=== PATIENT | female | born 1930 | race Caucasian/White ===

== ENCOUNTER 2016-08-17 13:32 | Inpatient (IN) | payer MEDICARE, BC ==
[2016-08-17] VITALS (17 sets, daily range): BP systolic 96–136; BP diastolic 42–68; BMI 29.4
[~2016-08-17] VITALS: Ht 163.8 cm; Wt 78.9 kg
--- NOTE | 2016-08-17 13:50 | NUR ---
PATIENT RECEIVED TO FLOOR FROM ADMISSIONS VIA WHEELCHAIR. PATIENT SITTING UP ON SIDE OF BED. ORIENTED TO ROOM. POSITIONED IN BED FOR COMFORT. SIDE RAILS UP X2. BED IN LOW POSITION. CALL LIGHT IN REACH. DENIES NEEDS.
[2016-08-17] MEDS ORDERED: TEGRETOL 100 M100 MG PO (13:56)
[2016-08-17] MEDS ORDERED: COSOPT EYE DROPS5 ML EACH EYE (13:57)
[2016-08-17] MEDS ORDERED: COUMADIN5 MG PO (13:57)
[2016-08-17] MEDS ORDERED: K-DUR20 MEQ PO (13:58)
[2016-08-17] MEDS ORDERED: LOPRESSOR25 MG PO (13:58)
[2016-08-17] MEDS ORDERED: HYDROCODONE-APA1 TAB PO (13:59)
[2016-08-17] MEDS ORDERED: DYAZIDE 37.5/251 CAP PO (13:59)
[2016-08-17] MEDS ORDERED: XALATAN 0.0052.5 ML EACH EYE (14:01)
--- NOTE | 2016-08-17 14:05 | NUR ---
2 FAILED ATTEMPTS TO SITE IV BY SHWETA SANCHEZ. ROMAN PRICE TO ATTEMPT TO SITE IV.
--- NOTE | 2016-08-17 14:10 | NUR ---
VASCULAR ACCESS NURSE CONSULTED FOR IV PLACEMENT
[2016-08-17] MEDS ORDERED: CYCLOBENZAPRINE10 MG PO (14:14)
--- NOTE | 2016-08-17 15:15 | NUR ---
IV ACCESS-22 GAUGE INSERTED IN LEFT HAND FOR IV ACCESS. JANICE MARTINESRN
[2016-08-17 15:24] LABS: HEMATOCRIT 29.3 % (36.0-48.0); HEMOGLOBIN 9.1 g/dL (12-16)
--- NOTE | 2016-08-17 17:45 | NUR ---
FFP INITIATED TO LEFT HAND PER ORDER. TRANSFUSING WITHOUT DIFFICULTY. VITAL SIGNS STABLE. WILL CONTINUE TO MONITOR.
--- NOTE | 2016-08-17 19:55 | NUR ---
REVIEVED PT LYING IN BED TALKING WITH FAMILY, ASSESSMENT COMPLETED, NO ACUTE DISTRESS NOTED, FALL PRECAUTIONS IN PLACE, CL IN REACH, WILL MONITOR
--- NOTE | 2016-08-17 20:45 | NUR ---
BLOOD INFUSION STARTED, NO SS OF RX NOTED, VSS PT DENIES ITCHING, FEVER, NAUSEA, CHILLS OR PAIN, INSTRUCTED PT TO INFORM STAFF IF ANY OF THESE OR OTHER UNUSUAL SYMPTOMS OCCUR, UNDERSTANDING VOICED, WILL MONITOR
--- NOTE | 2016-08-17 21:00 | NUR ---
BLOOD CONTINUES TO INFUSE WITH NO SS OF DISTRESS OR RX NOTED
--- NOTE | 2016-08-17 22:00 | NUR ---
BLOOD INFUSING, PT DENIES FEELING ANY SS OF RX, WILL CONTINUE TO MONITOR, CL IN REACH
--- NOTE | 2016-08-17 23:30 | NUR ---
BLOOD FINISHED INFUSING, PT DENIES ANY DISCOMFORT OR NEEDS, LINE FLUSHING, WILL START 2ND UNIT, CL IN REACH
[2016-08-18] VITALS (12 sets, daily range): BP systolic 100–131; BP diastolic 45–61; Ht 163.8 cm; Wt 78.9 kg
--- NOTE | 2016-08-18 | NUR ---
2ND UNIT STARTED INFUSING, NO SS OF RX NOTED, AARON WELL, DENIES NEEDS OR DISCOMFORT, CL IN REACH
--- NOTE | 2016-08-18 01:15 | NUR ---
BLOOD CONTINUES TO INFUSE, NO RX NOTED, PT RESTING WITH EYES CLOSED, RESP WITH EASE, SR'S UP, CL IN REACH
--- NOTE | 2016-08-18 02:45 | NUR ---
2ND UNIT FINISHED INFUSING, PT AARON WELL, DENIES NEEDS, CL IN REACH
[2016-08-18 05:21] LABS: HEMOGLOBIN 9.9 g/dL (12-16)
[2016-08-18 05:32] LABS: INR 3.68 (0.85-1.17)
[2016-08-18 05:41] LABS: ALBUMIN 2.4 g/dL (3.4-5.0); BILIRUBIN - TOTAL 1.52 mg/dL (0.2-1.3); CALCIUM 8.6 mg/dL (8.5-10.1); CARBON DIOXIDE 25.2 mmol/L (21.0-32.0); POTASSIUM - SERUM 4.2 mmol/L (3.5-5.1)
--- NOTE | 2016-08-18 08:00 | NUR ---
PATIENT IN RIGHT LATERAL POSITION RESTING WITH EYES CLOSED. RESPIRATIONS EVEN AND UNLABORED. SIDE RAILS UP X2. BED IN LOW POSITION. CALL LIGHT IN REACH.
--- NOTE | 2016-08-18 08:02 | HP ---
PATIENT: EUGENIO LOPES MEDICAL RECORD: [id number] ACCOUNT: [id number] LOCATION:[facility] : 32 ADMISSION DATE: 08/17/16 HISTORY AND PHYSICAL EXAMINATION DATE OF ADMISSION: 08/17/2016 CHIEF COMPLAINT: Abnormal weight loss, acute blood loss anemia, Coumadin-induced coagulopathy. HISTORY OF PRESENT ILLNESS: This is an 86-year-old white female with hypertension, history of iron deficient anemia, arthritis, obesity, chronic low back pain, atrial fibrillation on Coumadin, who was brought in by her son today complaining that she has had black tarry stools for 2 days. She is on Coumadin. She does not take Pepto-Bismol. She has never seen a gameroom technician. She has no appetite, but when she does try to eat, "it does not taste right." She has lost 36 pounds since I saw her 06/26/2016. Her hemoglobin on 06/26/2016 was 11.7. Today, her hemoglobin is 8.9. She is admitted. PAST MEDICAL AND SURGICAL HISTORY: Hypertension, anemia, arthritis, obesity, ____ spinal stenosis lumbar canal, atrial fibrillation, remote history of cerebrovascular accident, right frontal lobe. PAST SURGICAL HISTORY: Hysterectomy, cholecystectomy, left total knee arthroplasty, gastric bypass, Dr. Orozco in 2010, cataract extraction. ALLERGIES: None known. HOME MEDICATIONS: Carbamazepine 100 mg tablets 2 pills twice a day, triamterene 37.5/HCTZ 25 once a day, warfarin 5 mg on Wednesday, , Wednesday, Wednesday and 7.5 mg on Wednesday, Wednesday, Wednesday, metoprolol 50 mg once a day, lisinopril 5 mg once a day, [place] 10/325 q.4 hours p.r.n. pain, dorzolamide 22.3 mg -- timolol 6.8 mg per mL eyedrops in both eyes twice a day. SOCIAL HISTORY: She is retired. She is . She lives alone. FAMILY HISTORY: Father of heart disease. Mother with lung cancer. HABITS: Never smoked. No alcohol or drugs. REVIEW OF SYSTEMS: GENERAL: No major weight changes except for this 36-pound weight loss over the last 7 weeks. She lost about 100 pounds with her gastric bypass surgery in 2000. HEENT: No particular sinus or allergy problems. RESPIRATORY: No history of emphysema or asthma. CARDIAC: No history of coronary artery disease. She does have atrial fibrillation on Coumadin. GENITOURINARY: No history of diarrhea, constipation or reflux. She has never seen a gameroom technician. MUSCULOSKELETAL: She has arthritic aches and pains and has spinal stenosis in her back. NEUROLOGIC: She had a remote stroke years ago, but no known residual from that. PSYCHIATRIC: Denies depression or melancholia. HISTORY AND PHYSICAL [id number] EUGENIO LOPES PHYSICAL EXAMINATION: VITAL SIGNS: Today, temperature 97.9, pulse 78, respirations 20, blood pressure 136/68, O2 sat 100%. She does not appear in distress. She is a little pale. HEENT: Grossly within normal limits. NECK: Supple. No bruit. HEART: Irregularly irregular. LUNGS: Fairly clear. ABDOMEN: Soft, flat, nontender. EXTREMITIES: No edema. LABORATORY DATA: From my office, her INR was 14. CBC showed hemoglobin of 8.9, was 11.7 on 06/26/2016. ASSESSMENT: 1. Acute blood loss anemia. 2. Upper gastrointestinal bleed. 3. Coagulopathy from warfarin. 4. Abnormal weight loss. PLAN: We will transfuse, we will stabilize, consult Dr. Castillo. Other tests and procedures as warranted. TRANSINT:[id number] Voice Confirmation ID: [id number] DOCUMENT ID: [id number] SATISH HDEZ MD at 0802 CC: [id number] DICTATION DATE: 08/17/16 1509 ADULT SERVICES LIBRARIAN: 08/17/16 1832 ADM IN [id number] [place] [address]
--- NOTE | 2016-08-18 08:20 | NUR ---
PT ASSESSMENT COMPLETE AWAKE AND ALERT ORIENTED X 3 LUNGS CLEAR BIALTERALLY HAS NO ACUTE DISTRESS NTOED NO VISIBLE BLEEDING NOTED S/P TRANSFUSION YESTERDAY AND LAST NIGHT HCT AND HGB MUCH IMPROVED TODAY. CALL LIGHT IN REACH SIDE RAILS UP X 2 WILL MONITOR.
--- NOTE | 2016-08-18 10:44 | NUR ---
NO ACUTE DISTRESS NOTED VOICES ALL NEEDS TO STAFF CALL LIGHT INREACH SLEEPING WITH EVEN AND UNLABORED RESPIRATIONS AT THIS TIME.
[2016-08-18 14:34] LABS: HEMATOCRIT 31.3 % (36.0-48.0); HEMOGLOBIN 9.9 g/dL (12-16)
--- NOTE | 2016-08-18 19:05 | CN ---
PATIENT NAME:EUGENIO LOPES MEDICAL RECORD: [id number] : 34 LOCATION:[facility] ADMIT DATE: 08/17/16 ACCOUNT: [id number] CONSULTING PHYSICIAN: HERNÁN CARMICHAEL MD REFERRING PHYSICIAN: SATISH HDEZ MD DATE OF CONSULTATION: 08/17/2016 Gastroenterology Consultation REFERRING PHYSICIAN: Satish Hdez MD (Bill) HISTORY OF PRESENT ILLNESS: The patient is an 86-year-old white female with history of AFib, on chronic Coumadin therapy, as well as aspirin, and has also had a gastric bypass, who was basically admitted with a 3-month history of a reported 25-pound weight loss associated with 3-week history of what started as some nausea and vomiting followed by poor appetite, and now melena. She presented to the outpatient clinic and was reportedly found to have a hematocrit of 29 and an INR of 14. She denies any NSAID use other than her baby aspirin daily. She has no past history of any peptic ulcer disease. She has never had any type of endoscopy in the past. She denies any current abdominal pain. She claims she had been passing melena for the past 3 days. PAST MEDICAL HISTORY: As above. PAST SURGICAL HISTORY: Remarkable for the above. She has had a cholecystectomy, hysterectomy and left knee and left hip replacement. ALLERGIES: No known drug allergies. HOME MEDICATIONS: Include Tegretol, Coumadin, eyedrops, potassium, Lopressor, hydrocodone p.r.n., Dyazide, Flexeril and baby aspirin. FAMILY HISTORY: Negative for GI diseases. SOCIAL HISTORY: The patient is a nonsmoker and nondrinker. REVIEW OF SYSTEMS: Noncontributory per HPI with the exception of she also complains of dysgeusia. LABORATORY DATA: As above. I do not have any chemistries at all and I do not have any MCV. IMPRESSION: Anemia and gastrointestinal bleeding with melena of unclear etiology; however, in light of her weight loss and dysgeusia, I am concerned about the possibility of underlying malignancy. Again, she is on Coumadin and aspirin. She also has a history of a gastric bypass, which could be playing a role with her anemia. RECOMMENDATION: 1. Transfuse to hematocrit of around 28 to 30. 2. Correct her INR with vitamin K and fresh frozen plasma. 3. IV Protonix for now. 4. She will probably need panendoscopy and a CT of the abdomen once stabilized. TRANSINT:[id number] Voice Confirmation ID: [id number] DOCUMENT ID: [id number] CONSULT REPORT [id number] EUGENIO LOPES JOHN MD at 1905 CC: SATISH HDEZ MD [id number] DICTATION DATE: 08/17/16 182 GOLF TOURNAMENT CONSULTANT: 08/18/16 0017 ADM IN [facility] [address] [id number]
--- NOTE | 2016-08-18 19:25 | NUR ---
PATIENT RESTING WITH EYES CLOSED. NO VISIBLE SIGNS OF DISTRESS. BED IN LOWEST POSITION AND CALL LIGHT WITHIN REACH.
[2016-08-18 22:28] LABS: HEMATOCRIT 30.3 % (36.0-48.0); HEMOGLOBIN 9.6 g/dL (12-16)
[2016-08-19] VITALS: BP 108/50
[2016-08-19 04:00] VITALS: BP 124/55
[2016-08-19 06:23] LABS: HEMATOCRIT 33.1 % (36.0-48.0); HEMOGLOBIN 10.4 g/dL (12-16)
[2016-08-19 06:53] LABS: INR 2.21 (0.85-1.17); PROTIME 24.6 SECONDS (11.6-15.0)
[2016-08-19 07:07] LABS: ALBUMIN 2.2 g/dL (3.4-5.0); BILIRUBIN - TOTAL 1.09 mg/dL (0.2-1.3); CALCIUM 8.4 mg/dL (8.5-10.1); CARBON DIOXIDE 23.9 mmol/L (21.0-32.0); CREATININE - SERUM 0.9 mg/dL (0.6-1.3); POTASSIUM - SERUM 3.9 mmol/L (3.5-5.1); PROTEIN - SERUM 6.8 g/dL (6.4-8.2)
[2016-08-19 08:20] VITALS: BP 130/63
--- NOTE | 2016-08-19 08:42 | NUR ---
PT SEEN AND ASSESSED. NOPO FOR EGD THIS AM. CONSENTS WILL NEED TO BE SIGNED. NO NEEDS AT THIS TIME. CALL LIGHT IN REACH
--- NOTE | 2016-08-19 12:13 | NUR ---
PT TO GI LAB PER BED AT 1030. SON CURRENTLY AT BEDSIDE WAITING.
--- NOTE | 2016-08-19 14:11 | NUR ---
PT RETURNED AT 1350 FROM GI LAB PER BED. BP 134/75 P 75. NO SOB OR BLEEDING NOTED. MAY HAVE CLEAR LIQ DIET WHICH IS AT BEDSIDE. INSTRUCTED PT TO DRINK CONTRAST FOR CT ABD/PELVIS THEN NPO TILL AFTER XRAYS. SON AT BEDSIDE WITH CALL LIGHT IN PLACE
--- NOTE | 2016-08-19 15:14 | NUR ---
UNABLE TO START IV/SL AFTER RETURN FROM GI LAB. SEVERAL ATTEMPTS UNSUCCESSFUL. JANICE HESS PICC/MIDLINE NURSE PAGED.
--- NOTE | 2016-08-19 15:29 | NUR ---
Patient Name: EUGENIO LOPES Admission Status: Urgent Accout number: [id number] Admission Date: 08-17-2016 : 1932 Admission Diagnosis:CHRISTIANE Attending: EAMON Current LOS: 2 Anticipated DC Date: 08-20-2016 Planned Disposition: Home Primary Insurance: MEDICARE A & B Discharge Planning Comments: CM MET WITH PATIENT REGARDING D/C NEEDS AND PLANS. PATIENT STATED SHE LIVES AT HOME AND HER GRANDSON LIVES DOWNSTAIRS. PATIENT HAS A RAMP TO ENTER HOME AND 1 FLIGHT OF STAIRS W/RAILS IN HOME (PATIENT DOES NOT USE). PATIENT IS INDEPENDENT WITH HER CARE AND HAS A WALKER, SCOOTER, AND RAISED TOILET SEAT. PATIENTS PCP IS DR. HDEZ AND PHARMACY IS [facility] ON [address]. PATIENT IS REFUSING HOME HEALTH OR ANY OTHER NEEDS FOR DISCHARGE. CM WILL CONTINUE TO FOLLOW PATIENT WITH D/C NEEDS AND PLANS. PCP DR[facility] [phone] ALE LOPES (SON) [phone] Analog Design Engineer: Brii Pozo Is the patient Alert and Oriented? Yes 0 * How many steps to enter\exit or inside your home? RAMP 0 * PCP DR. HDEZ 0 * [facility] [address] 0 * Preadmission Environment Home with Family 0 * ADLs Independent 0 * Equipment Elevated [place] Seat Walker 0 * Other Equipment SCOOTER 0 * List name and contact numbers for known caregivers / representatives who currently or will assist patient after discharge: ALE MARIANNE (SCOOTER) 0 * Community resources currently utilized None 0 * Additional services required to return to the preadmission environment? Yes 0 * Can the patient safely return to the preadmission environment? Yes 0 * Has this patient been hospitalized within the prior 30 days at any hospital? No 0 Grand Total: 0
--- NOTE | 2016-08-19 15:53 | NUR ---
TO CT PER BED
--- NOTE | 2016-08-19 19:47 | NUR ---
PATIENT DENIES NEEDS AT THIS TIME. BED IN LOWEST POSITION AND CALL LIGHT WITHIN REACH. ENCOURAGED PATIENT TO CALL IF SHE HAS FURTHER NEEDS.
[2016-08-19 20:00] VITALS: BP 139/74
[2016-08-20] VITALS: BP 120/62
[2016-08-20 04:00] VITALS: BP 126/68
[2016-08-20 06:33] LABS: ANION GAP 11.8 mmol/L (8-16); BILIRUBIN - TOTAL 1.1 mg/dL (0.2-1.3); CALCIUM 8.1 mg/dL (8.5-10.1); CARBON DIOXIDE 24.8 mmol/L (21.0-32.0); CREATININE - SERUM 0.9 mg/dL (0.6-1.3); INR 1.41 (0.85-1.17); POTASSIUM - SERUM 3.6 mmol/L (3.5-5.1); PROTEIN - SERUM 6.2 g/dL (6.4-8.2); PROTIME 17.2 SECONDS (11.6-15.0)
[2016-08-20 08:15] VITALS: BP 118/56
--- NOTE | 2016-08-20 08:37 | NUR ---
PT ASSESSMENT COMPLETE AWAKE AND ALERT ORINETD X 3L UNGS CLAER BIALTERAL HEART RHYTHM CAF PER TELEMETRY. NO ACUTE DISTRESS NOTED. CALL LIGHT IN REACH SIDE RAILS UP X 2
--- NOTE | 2016-08-20 12:26 | NUR ---
PT TO BEGIN COLON PREP THIS AFTERNOON FOR COLONOSCOPY IN AM. GALEN LIGHT IN REACH SIDE RAILS UP X 2
[2016-08-20 12:31] VITALS: BP 133/62
--- NOTE | 2016-08-20 12:56 | NUR ---
NUTRITION MONITORING & EVAL CHART REVIEWED. CLEAR LIQUID DIET. NOTE POSSIBLE COLONOSCOPY TOMORROW. WILL MONITOR DIET ADVANCEMENT AFTER PROCEDURE. RD FOLLOWING
[2016-08-20 16:02] VITALS: BP 95/60
--- NOTE | 2016-08-20 18:18 | PRO ---
PATIENT:EUGENIO LOPES MEDICAL RECORD: [id number] : 32 LOCATION:D.[facility] ADMISSION DATE: 08/17/16 PROCEDURE PERFORMED BY: HERNÁN MASCORRO MD DATE OF PROCEDURE: 08/19/2016 UTILITY WORKER: Hernán Mascorro MD. PROCEDURE: EGD. INDICATION: The patient is an 86-year-old white female with history of AFib on Coumadin and aspirin, hypertension and is status post gastric bypass who basically was admitted with severe anemia, melena as well as a little more worrisome weight loss and dysgeusia. Her hematocrit was about 15 on admission and her INR was over 10. She is now for EGD. Currently, her hematocrit is up to 30 and her INR is down to 2.3 after vitamin K and packed red blood cells. PREMEDICATION: Taper anesthesia. INSTRUMENT: Olympus video gastroscope. FINDINGS: The endoscope was passed through the oropharynx to the second portion of duodenum without difficulty. The esophagus was normal. The stomach was entered and was remarkable for surgical change consistent with a gastric bypass. She only had about 3 cm of stomach remaining. The duodenum was entered and was completely normal. There was not a drop of blood seen anywhere during the procedure. The patient tolerated the procedure well without complication. IMPRESSION: 1. Normal esophagogastroduodenoscopy other than surgical change consistent with a gastric bypass with a very small gastric pouch remaining. 2. Anemia and melena, still of unclear etiology. Rule out lower gastrointestinal source, small bowel AVMs, etc. Again, her INR was 10 on admission. PLAN: 1. CT of the abdomen and pelvis to rule out underlying malignancy especially because of her several week history of dysgeusia and weight loss. 2. Colonoscopy the following day. TRANSINT:[id number] Voice Confirmation ID: [id number] DOCUMENT ID: [id number] HERNÁN MASCORRO MD at 1818 CC: SATISH HDEZ MD [id number] DICTATION DATE: 08/19/16 1312 MANAGER SALT: 08/20/16 1038 ADM IN [id number] [place] [address]
--- NOTE | 2016-08-20 18:20 | NUR ---
COMPLETE WITH OSMOPREP AT THIS TIME. HAS HAD SEVERAL LOOSE STOOLS THIS EVENING.
--- NOTE | 2016-08-20 19:30 | NUR ---
PT RECEIVED SITTING UP IN BED WATCHING TELEVISION. BREATH SOUNDS CLEAR BILATERALLY. RESPIRATIONS EVEN AND UNLABORED. BOWEL SOUNDS ACTIVE IN ALL FOUR QUADRANTS. ABD SOFT AND NONTENDER UPON PALPATION. HAND CENTRAL OFFICE REPAIRER SUPERVISOR EQUAL. MIDLINE NOTED TO LEFT AC. TELEMETRY IN PLACE. PT DENIES PAIN OR NEEDS AT THIS TIME. CALL AND H2O IN PT REACH. SIDE RAILS UP X2. BED IN LOW POSITION.
[2016-08-20 20:00] VITALS: BP 141/65
--- NOTE | 2016-08-20 20:38 | NUR ---
PATIENT IS AWAKE, ALERT AND ORIENTED X'S 4. RESPIRATIONS ARE EVEN AND UNLABORED ON ROOM AIR. PATIENT DENIES NEEDS AT THIS TIME. BED IN LOWEST POSITION, CALL LIGHT IN REACH. BED RIALS UP X'S 2.
--- NOTE | 2016-08-20 21:35 | NUR ---
PT SITTING UP IN BED WATCHING TELEVISION. RESPIRATIONS EVEN AND UNLABORED. PT RECEIVED FINAL DOSE OF OSMOPREP. PT STATES, "I'M USING THE BATHROOM FREQUENTLY." STOOLS NOTED TO BE LIQUID AND DARK GREEN IN COLOR. PT DENIES PAIN OR NEEDS AT THE TIME. CALL LIGHT AND H2O IN REACH. SIDE RAILS UP X2. BED IN LOW POSITION.
--- NOTE | 2016-08-20 23:53 | NUR ---
PT SITTING UP IN BED WATCHING TELEVISION. PT STATES, "I'M GONNA BE UP ALL NIGHT GOING I GUESS." NO S/S OF DISTRESS NOTED. RESPIRATIONS EVEN AND UNALBORED. PT DENIES PAIN OR NEEDS AT THIS TIME. CALL LIGHT AND H2O IN REACH. PT NOTED TO BE NPO AFTER MIDNIGHT, PT AWARE OF NPO ORDERS AND VERBALIZES UNDERSTANDING. SIDE RAILS UP X2. BED IN LOW POSITION.
[2016-08-21] VITALS: BP 117/52
--- NOTE | 2016-08-21 01:30 | NUR ---
PT STOOLS IN BSC NOTED TO BE BRIGHT GREEN IN COLOR AND CLEAR IN TRANSPARENCY. NO S/S OF DISTRESS NOTED FROM PT. RESPIRATIONS EVEN AND UNLABORED. PT DENIES PAIN OR NEEDS AT THIS TIME. PT CONTINUES WITH NPO. CALL LIGHT IN REACH. BED IN LOW POSITION. SIDE RAILS UP X2.
--- NOTE | 2016-08-21 03:30 | NUR ---
PT RESTING IN BED WITH EYES CLOSED. NO S/S OF DISTRESS NOTED. RESP EVEN AND UNLABORED. PT ABLE TO VOICE NEEDS, NO COMPLAINTS OR NEEDS VOICED AT THIS TIME. PT CONTINUES TO BE NPO. CALL LIGHT IN REACH. BED IN LOW POSITION. SIDE RAILS UP X2.
[2016-08-21 04:00] VITALS: BP 118/53
--- NOTE | 2016-08-21 04:00 | NUR ---
PATIENT SLEEPING WITH NO DISTRSS NOTED. AGREE WITH LINER INSTALLER ASSESSMENT.
[2016-08-21 06:27] LABS: BASOPHILS 0.1 % (0.0-2.0); EOSINOPHILS 0.8 % (0-7); HEMATOCRIT 30.5 % (36.0-48.0); HEMOGLOBIN 9.6 g/dL (12-16); IMMATURE GRANULOCYTES 0.2 % (0-5); LYMPHOCYTES 12.7 % (15-50); MCH 26.1 pg (26.0-34.0); MCHC 31.5 g/dL (31.0-37.0); MCV 82.9 fL (80.0-100.0); MEAN PLATELET VOLUME 9.8 fL (7.4-10.4); MONOCYTES 11.2 % (2-11); PLATELET COUNT 314 10x3/uL (130-400); RBC 3.68 10x6/uL (4.00-5.40); RDW 15.2 % (11.5-14.5); WBC 8.4 10x3/uL (4.8-10.8)
[2016-08-21 06:34] LABS: INR 1.36 (0.85-1.17); PROTIME 16.7 SECONDS (11.6-15.0)
[2016-08-21 06:53] LABS: ALBUMIN 2.1 g/dL (3.4-5.0); ANION GAP 15.7 mmol/L (8-16); BILIRUBIN - TOTAL 0.7 mg/dL (0.2-1.3); CALCIUM 7.9 mg/dL (8.5-10.1); CARBON DIOXIDE 21.6 mmol/L (21.0-32.0); PROTEIN - SERUM 6.3 g/dL (6.4-8.2)
[2016-08-21 07:15] LABS: POTASSIUM - SERUM 2.3 mmol/L (3.5-5.1)
--- NOTE | 2016-08-21 07:41 | NUR ---
PT. AOX4 RESP EVEN AND NONLABORED SMALL LIQUID STOOL IN BSC. PT DENIES NEEDS AT THIS TIME. LEFT AC MIDLINE PATENT AND INTACT BED AT LOWEST SETTING AND CALL LIGHT WITHIN REACH
[2016-08-21 08:09] VITALS: BP 150/63
[2016-08-21 08:41] LABS: % SATURATION 16 % (15-55); IRON 27 ug/dl (35-150); TOTAL IRON BIND CAPACITY 161 ug/dl (260-445); UNSAT IRON BIND CAPACITY 134 ug/dl (150-375)
--- NOTE | 2016-08-21 10:35 | NUR ---
PT. LEFT AT THIS TIME VIA BED WITH TELEVISION SPECIALIST AT THIS TIME
[2016-08-21 15:48] VITALS: BP 125/61
--- NOTE | 2016-08-21 19:00 | NUR ---
PATIENT SUPINE IN BED WATCHING TV. HOB 30 DEGREES. AAOX4. RR EVEN AND UNLABORED. 0 S/S OF DISTRESS. DENIES PAIN AT THIS TIME. MIDLINE TO LEFT AC SL WITH NO REDNESS OR SWELLING. TELEMETRY ON. SRX2. BED LOW. CALL LIGHT WITHIN REACH.
[2016-08-21 20:00] VITALS: BP 136/66
--- NOTE | 2016-08-21 21:30 | NUR ---
ASSESSMENT COMPLETE. EYEDROPS ADMINISTERED. TEGRETOL HELD BECAUSE PATIENT REFUSED.
--- NOTE | 2016-08-21 23:00 | NUR ---
PATIENT'S POTASSIUM 3.2. 40 MEQ OF KCL GIVEN PO PER ORDER. LABS TO BE RECHECKED IN AM.
[2016-08-22] VITALS: BP 107/53
[2016-08-22 04:00] VITALS: BP 119/43
[2016-08-22 06:11] LABS: INR 1.27 (0.85-1.17); PROTIME 15.8 SECONDS (11.6-15.0)
[2016-08-22 06:14] LABS: ANION GAP 13.3 mmol/L (8-16); BILIRUBIN - TOTAL 0.64 mg/dL (0.2-1.3); CALCIUM 7.8 mg/dL (8.5-10.1); CARBON DIOXIDE 22.6 mmol/L (21.0-32.0); CREATININE - SERUM 0.9 mg/dL (0.6-1.3); PROTEIN - SERUM 6.2 g/dL (6.4-8.2)
[2016-08-22 06:15] LABS: POTASSIUM - SERUM 3.9 mmol/L (3.5-5.1)
--- NOTE | 2016-08-22 07:50 | NUR ---
PT. AOX4 RESP EVEN AND NONLABORED PT DENIES NEEDS AT THIS TIME LEFT MIDLINE TO AC PATENT AND INTACT BED AT LOWEST SETTING CALL LIGHT WITHIN REACH WILL CONTINUE TO MONITOR
[2016-08-22 08:30] VITALS: BP 116/60
[2016-08-22 09:12] LABS: FOLATE (FOLIC ACID) - SERUM 3.1 ng/mL (>3.0)
[2016-08-22] MEDS ORDERED: FERROUS SULFAT325 MG PO (12:45)
[2016-08-22 12:54] VITALS: BP 129/65
--- NOTE | 2016-08-22 14:11 | NUR ---
MIDLINE CATHETER IN RIGHT UPPER ARM REMOVED WITHOUT DIFFICULTY AT THIS TIME WITH 15.5 CM OF CATHETER AND INTACT
--- NOTE | 2016-08-27 17:58 | PRO ---
PATIENT:EUGENIO LOPES MEDICAL RECORD: [id number] : 32 LOCATION:D[facility] ADMISSION DATE: 08/17/16 PROCEDURE PERFORMED BY: HERNÁN MASCORRO MD DATE OF PROCEDURE: 08/21/2016 PANEL MACHINE TENDER: Hernán Mascorro MD. PROCEDURE: Colonoscopy. INDICATION: The patient is an 86-year-old white female with history of AFib, on Coumadin, as well as a history of gastric bypass, who basically was admitted with severe anemia, markedly elevated INR of over 10, weight loss and dysgeusia. She was admitted with some melena. She has had a negative workup thus far including a CT of the abdomen and pelvis as well as an EGD, both of which were unremarkable other than surgical drainage consistent with her gastric bypass procedure. There have been no signs of any bleeding. Her INR was corrected with fresh frozen plasma and vitamin K. Her hematocrit is now 30 and her INR is 1.5. She is now for colonoscopy. PREMEDICATION: Taper anesthesia. INSTRUMENT: Olympus video adjustable colonoscope. FINDINGS: Rectal exam was normal. The colonoscope was passed through the rectum into the cecum with [id number] difficulty secondary to some looping in the colon. Prep was good. 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 This was not bleeding at that time, but was quite vascular and somewhat pulsatile. Because of this and her advanced age, I did not feel comfortable trying to do any therapeutic measures to this, i.e., cauterization. I fear that can actually make this problem worse rather than better. The rest of exam was normal. She had no polypoid lesions, mass lesions or diverticular disease present. The patient tolerated the procedure well without complication. IMPRESSION: 1. 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 Again, she was on Coumadin and baby aspirin. 2. Small internal hemorrhoids. 3. Otherwise normal colonoscopy. RECOMMENDATIONS: 1. Okay to resume Coumadin, but I would keep her INR around 2.5 and keep a very close eye on it. 2. Recheck her hematocrit in a couple of weeks. 3. If needed, consider starting her on low-dose iron, p.r.n. transfusions, etc. 4. Okay for discharge planning and regular diet from my standpoint. TRANSINT:[id number] Voice Confirmation ID: [id number] DOCUMENT ID: [id number] PROCEDURE NOTE [id number] EUGENIO LOPES JOHN MD at 1758 CC: SATISH HDEZ MD [id number] DICTATION DATE: 08/21/16 1153 HEALTH ADVOCATE: 08/22/16 0237 DIS IN 08/22/16 [facility] [address] [place] [address]
== END 2016-08-22 14:51 | disposition home or self-care (01) | DRG 378 ==
LOC: D.MS 13:32
PROVIDERS: Internal Medicine Gastroenterology; ADMIT Family Medicine
PROC: B54MZZA Ultrasonography of Right Upper Extremity Veins, Guidance (ICD-10-PCS; 2016-08-19)
PROC: 0DJ08ZZ Inspection of Upper Intestinal Tract, Via Natural or Artificial Opening Endoscopic (ICD-10-PCS; 2016-08-19)
PROC: 05HB33Z Insertion of Infusion Device into Right Basilic Vein, Percutaneous Approach (ICD-10-PCS; principal; 2016-08-19 11:00)
PROC: 0DJD8ZZ Inspection of Lower Intestinal Tract, Via Natural or Artificial Opening Endoscopic (ICD-10-PCS; 2016-08-21)
DX: K55.21 Angiodysplasia of colon with hemorrhage (principal); D62 Acute posthemorrhagic anemia; D68.32 Hemorrhagic disorder due to extrinsic circulating anticoagulants; T45.515A Adverse effect of anticoagulants, initial encounter; I48.91 Unspecified atrial fibrillation; R63.4 Abnormal weight loss; Z68.29 Body mass index [BMI] 29.0-29.9, adult; E66.01 Morbid (severe) obesity due to excess calories; M19.90 Unspecified osteoarthritis, unspecified site; I10 Essential (primary) hypertension; Z98.84 Bariatric surgery status; R43.2 Parageusia; K64.8 Other hemorrhoids

== ENCOUNTER → 2017-11-24 12:32 | Outpatient (CLI) | payer MEDICARE ==
[2016-08-18 12:17] VITALS: BMI 29.4
[~2017-11-24 12:32] MED LIST: COSOPT EYE DROPS5 ML EACH EYE; COUMADIN5 MG PO; CYCLOBENZAPRINE10 MG PO; DYAZIDE 37.5/251 CAP PO; FERROUS SULFAT325 MG PO; HYDROCODONE-APA1 TAB PO; K-DUR20 MEQ PO; LOPRESSOR25 MG PO; TEGRETOL 100 M100 MG PO; XALATAN 0.0052.5 ML EACH EYE
== END | disposition home or self-care (01) ==
LOC: D.US 12:32
DX: R60.0 Localized edema (principal); I73.9 Peripheral vascular disease, unspecified